=== PATIENT | female | born 1985 | race Caucasian/White ===

== ENCOUNTER 2022-10-04 11:34 | Emergency (ER) | payer MEDICAID ==
[~2022-10-04] VITALS: Ht 180.3 cm; Wt 68.0 kg
[~2022-10-04 11:34] MED LIST: ONDA4TAB6 PO
[2022-10-04 11:35] VITALS: TEMP 97.6
[2022-10-04 12:34] VITALS: BP 111/70; PULSE 62; O2SAT 100
[2022-10-04 12:50] LABS: BASOPHILS % (AUTO) 0.8 % (0-1); EOSINOPHILS # (AUTO) 0.3 X10'3 (0-0.9); EOSINOPHILS % (AUTO) 5.9 % (0-6); HEMATOCRIT 37.3 % (35.0-45.0); HEMOGLOBIN 12.3 g/dl (12.0-16.0); LYMPHOCYTES # (AUTO) 1.3 X10'3 (1.1-4.8); LYMPHOCYTES % (AUTO) 27.4 % (21-51); MEAN CORPUSCULAR HEMOGLOBIN 29.3 PG (27.0-31.0); MEAN CORPUSCULAR HGB CONC 32.9 g/dL (33.0-36.5); MEAN CORPUSCULAR VOLUME 89.1 FL (78-98); MEAN PLATELET VOLUME 9.6 FL (7.4-10.4); MONOCYTES # (AUTO) 0.3 X10'3 (0-0.9); MONOCYTES % (AUTO) 6.8 % (2-12); NEUTROPHILS # (AUTO) 2.7 X10'3 (1.8-7.7); NEUTROPHILS % (AUTO) 59.1 % (42-75); PLATELET COUNT 203 X10'3 (140-440); RED BLOOD COUNT 4.19 X10'6 (4.20-5.60); RED CELL DISTRIBUTION WIDTH 13.9 % (11.5-14.5); WHITE BLOOD COUNT 4.6 X10'3 (4.5-11.0)
[2022-10-04 12:51] LABS: CLARITY,URINE SLIGHTLY CLOUDY (Clear); COLOR,URINE YELLOW (Yellow); GLUCOSE, URINE NEGATIVE (Neg); KETONES,URINE NEGATIVE (Neg); LEUKOCYTE ESTERASE ,URINE NEGATIVE (Neg); NITRITES, URINE NEGATIVE (Neg); OCCULT BLOOD,URINE LARGE (Neg); PROTEIN,URINE NEGATIVE (Neg); UROBILINOGEN,URINE 0.2 E.U/dL (0.2-1.0)
[2022-10-04 12:52] LABS: URINE HCG NEGATIVE (NEG)
[2022-10-04 12:53] LABS: UA COLLECTION TYPE CLN CATCH MIDSTREAM
[2022-10-04 12:58] LABS: ALANINE AMINOTRANSFERASE 23 U/L (12-78); ALBUMIN/GLOBULIN RATIO 1.2 (1.1-1.5); ALKALINE PHOSPHATASE 28 IU/L (46-116); ANION GAP 7 (8-16); ASPARTATE AMINO TRANSFERASE 21 U/L (10-37); BILIRUBIN,TOTAL 0.5 MG/DL (0.1-1.0); BLOOD UREA NITROGEN 9 MG/DL (7-18); BUN/CREATININE RATIO 11.3 (10.0-20.0); CALCIUM 9.5 MG/DL (8.5-10.1); CHLORIDE 107 MMOL/L (99-107); GLUCOSE 71 MG/DL (70-104); SODIUM 142 MMOL/L (135-145); TOTAL CARBON DIOXIDE 28.2 MMOL/L (24-32); TOTAL PROTEIN 7.4 G/DL (6.4-8.2); eGFR 82 ML/MIN
[2022-10-04 13:03] LABS: BACTERIA,URINE NONE SEEN /HPF (Neg); WBC,URINE NONE SEEN /HPF (0-4)
[2022-10-04 13:04] LABS: SQUAMOUS EPITHELIAL CELL,UR FEW /LPF (FEW)
[2022-10-04 13:40] VITALS: RESP 16
== END 2022-10-04 14:34 | disposition home or self-care (01) ==
LOC: ER 11:34
DX: N93.9 Abnormal uterine and vaginal bleeding, unspecified (principal); R53.83 Other fatigue; R53.1 Weakness; O04.89 (Induced) termination of pregnancy with other complications; Z33.2 Encounter for elective termination of pregnancy; E28.2 Polycystic ovarian syndrome; Z87.42 Personal history of other diseases of the female genital tract; N80.9 Endometriosis, unspecified
CPT/HCPCS: 36415; 76856; 80053; 81001; 81025; 85025; 93976; 99284